=== PATIENT | male | born 1960 | race Caucasian/White ===

== ENCOUNTER 2021-06-22 10:54 | Inpatient (IN) | payer OTHER, SELFPAY ==
[2021-06-22 12:16] LABS: Absolute Lymphocytes (CBC) 1.3 K/uL (0.7-4.9); Basophils % 0.5 % (0-1.3); Hematocrit 41.3 % (39.6-49.0); Lymphocytes % 12.7 % (15.3-44.8); MPV 7.7 fL (7.6-11.3); RBC Red Blood Cell Count 4.56 M/uL (4.33-5.43)
[2021-06-22 12:17] LABS: Protime INR 1.09
[2021-06-22 12:40] LABS: ALT/SGPT 41 U/L (12-78); AST/SGOT 16 U/L (15-37); Albumin 3.8 g/dL (3.4-5.0); Alkaline Phosphatase 62 U/L (45-117); BUN Blood Urea Nitrogen 17 mg/dL (7-18); Bicarbonate 27 mmol/L (21-32); Bilirubin Direct 0.1 mg/dL (0-0.2); Bilirubin Total 0.7 mg/dL (0.2-1.0); Glucose Level 124 mg/dL (74-106); Lipase 95 U/L (73-393); NT PRO-BNP 90 pg/mL (<125); Potassium 4.1 mmol/L (3.5-5.1); Protein, Total 7.6 g/dL (6.4-8.2); Sodium Level 138 mmol/L (136-145); Troponin (Emerg Dept Use Only) < 0.02 ng/mL (0.0-0.045)
--- NOTE | 2021-06-22 12:43 | RAD REPORT ---
EXAM DESCRIPTION: RAD - Chest Single View - 06/22/2021 12:37 pm CLINICAL HISTORY: syncope COMPARISON: CHEST SINGLE VIEW dated 05/27/2014; CHEST SINGLE VIEW dated 05/23/2014; CHEST SINGLE VIEW dated 10/15/2011 FINDINGS: Lines: None. Lungs: No evidence of edema or pneumonia. Pleural: No significant pleural effusions or pneumothorax. Cardiac: The heart size is within normal limits. Bones: No acute fractures. Other: IMPRESSION: No acute cardiopulmonary disease.
--- NOTE | 2021-06-22 13:26 | RAD REPORT ---
EXAM DESCRIPTION: CTAbdomen Pelvis W Contrast - 06/22/2021 1:10 pm CLINICAL HISTORY: . ABD PAIN COMPARISON: CT ABD PELVIS W CONTRAST dated 05/25/2014 TECHNIQUE: Biphasic CT imaging of the abdomen and pelvis was performed with 100 ml non-ionic IV cont rast. All CT scans are performed using dose optimization technique as appropriate and may include automated exposure control or mA/KV adjustment according to patient size. FINDINGS: Lower chest: No acute abnormality. Liver: No acute abnormality or suspicious lesions. Biliary: No biliary ductal dilatation. Stomach: No significant focal abnormality. Duodenum: No significant focal abnormality. Pancreas: No significant abnormality. Spleen: No significant abnormality. Adrenal: No suspicious lesions. Kidney/ureter: No hydronephrosis. No renal calculi. Too small to characterize and/or benign appearing renal lesions are noted. Retroperitoneum: No retroperitoneal adenopathy. Vascular: No aneurysm. Bowel: Acute non perforated retrocecal appendicitis.. No bowel obstruction identified. No other signi ficant focal abnormality is identified. Peritoneum: No ascites or free air. Bladder: Grossly unremarkable. Reproductive: No adnexal masses. Bones: No acute fracture. Multilevel degenerative changes are present in the spine. Other: n/a IMPRESSION: Acute nonperforated appendicitis. No abscess or free air.
--- NOTE | 2021-06-22 13:41 | EDPHYS ---
Physician Documentation [facility] Name: Marvin Laureano Age: 61 yrs Sex: Male : 1960 Arrival Date: 06/22/2021 Time: 10:58 Bed 10 Private MD: ED Physician Shoaib Fuentes HPI: 06/22 11:41 This 61 yrs old Male presents to ER via Ambulatory with complaints of Low abd pm1 pain, Passed Out Prior To Arrival. 11:41 The patient presents with abdominal pain in the lower abdomen. pm1 11:41 Onset: The symptoms/episode began/occurred last night. The symptoms do not radiate. pm1 Associated signs and symptoms: Pertinent positives: Pertinent negatives: chest pain, diarrhea, dysuria, fever, nausea, shortness of breath, vomiting. The symptoms are described as achy. Modifying factors: The symptoms are alleviated by remaining still, the symptoms are aggravated by movement, walking. Severity of pain: in the emergency department the pain is unchanged is a 2 / 10 when he is not moving, but pain is moderate with movement and walking. The patient has not experienced similar symptoms in the past. The patient has not recently seen a physician, the patient's primary care provider is Dr. Nichole. 13:45 Patient last ate a small kolache and water at 1000 today. pm1 Historical: - Allergies: 11:13 No Known Allergies; jl7 - Home Meds: 11:13 None [Active]; jl7 - PMHx: 11:13 None; jl7 - PSHx: 11:13 right arm; back; jl7 - Immunization history:: Adult Immunizations not up to date. - Social history:: Smoking status: Patient denies any tobacco usage or history of. ROS: 11:41 Constitutional: Negative for fever, chills, and weight loss, Eyes: Negative for injury, pm1 pain, redness, and discharge, ENT: Negative for injury, pain, and discharge, Neck: Negative for injury, pain, and swelling, Cardiovascular: Negative for chest pain, palpitations, and edema, Respiratory: Negative for shortness of breath, cough, wheezing, and pleuritic chest pain. 11:41 Back: Negative for injury and pain, : Negative for injury, bleeding, discharge, and swelling, MS/Extremity: Negative for injury and deformity, Skin: Negative for injury, rash, and discoloration. 11:41 Abdomen/GI: Positive for abdominal pain, Negative for nausea, vomiting, and diarrhea, constipation. 11:41 Neuro: Positive for syncope, When he was sitting on the toilet this morning. 11:41 All other systems are negative. Exam: 11:41 Constitutional: This is a well developed, well nourished patient who is awake, alert, pm1 and in no acute distress. Head/Face: Normocephalic, atraumatic. 11:41 Back: No spinal tenderness. No costovertebral tenderness. Full range of motion. Skin: Warm, dry with normal turgor. Normal color with no rashes, no lesions, and no evidence of cellulitis. MS/ Extremity: Pulses equal, no cyanosis. Neurovascular intact. Full, normal range of motion. 11:41 Cardiovascular: Exam negative for acute changes, Rate: normal, Rhythm: regular, Pulses: no pulse deficits are appreciated, Heart sounds: normal, normal S1and S2, Edema: is not appreciated. 11:41 Respiratory: Exam negative for acute changes, respiratory distress, shortness of breath, Breath sounds: are clear throughout. 11:41 Abdomen/GI: Inspection: obese Palpation: soft, in all quadrants, moderate abdominal tenderness, in the right lower quadrant, rebound tenderness, is not appreciated. 11:41 Neuro: Exam negative for acute changes, Orientation: is normal, Mentation: is normal, Motor: is normal, moves all fours, Sensation: is normal, no obvious gross deficits. Vital Signs: 11:10 BP 142 / 98; Pulse 92; Resp 17; Temp 98.7; Pulse Ox 98% on R/A; Weight 145.15 kg; jl7 Height 6 ft. 2 in. (187.96 cm); Pain 6/10; 12:42 BP 125 / 73; Pulse 79; Resp 20; Pulse Ox 99% on R/A; oh 12:45 BP 137 / 81 Supine; Pulse 76; Resp 20; Pulse Ox 99% ; oh 12:50 BP 120 / 78 Sitting; Pulse 88; Resp 20; Pulse Ox 100% ; oh 12:55 BP 131 / 80 Standing; Pulse 87; Resp 20; Pulse Ox 100% ; oh 11:10 Body Mass Index 41.09 (145.15 kg, 187.96 cm) 7 MDM: 11:33 Patient medically screened. pm1 13:33 Physician consultation: Chon Nichole MD was called at 13:33, was contacted at 13:33, pm1 regarding admission, patient's condition. 13:38 Physician consultation: Pro Caruso MD was contacted at 13:38, regarding consult, pm1 patient's condition, and will see patient. 13:41 Counseling: I had a detailed discussion with the patient and/or guardian regarding: the pm1 historical points, exam findings, and any diagnostic results supporting the discharge/admit diagnosis, lab results, radiology results, the need for further work-up and treatment in the hospital. 13:41 Differential diagnosis: appendicitis, cholecystitis, non-specific abd pain, pm1 Ureterolithiasis, urinary tract infection. 13:53 Data reviewed: vital signs. Data interpreted: Pulse oximetry: on room air is 100 %. pm1 Interpretation: normal. 14:11 ED course: Patient offered pain medications on multiple occasions, but patient refused pm1 reports no pain present as long as he is laying in bed with minimal movement. 06/22 11:41 Order name: Basic Metabolic Panel pm1 06/22 11:41 Order name: CBC with Diff; Complete Time: 12:36 pm1 06/22 11:41 Order name: LFT's; Complete Time: 12:41 pm1 06/22 11:41 Order name: Magnesium; Complete Time: 12:41 pm1 06/22 11:41 Order name: NT PRO-BNP; Complete Time: 12:41 pm1 06/22 11:41 Order name: PT-INR; Complete Time: 12:36 pm1 06/22 11:41 Order name: CT Abd/Pelvis - IV Contrast Only; Complete Time: 13:30 pm1 06/22 11:41 Order name: Troponin (emerg Dept Use Only); Complete Time: 12:41 pm1 06/22 11:41 Order name: XRAY Chest (1 view); Complete Time: 12:49 pm1 06/22 11:41 Order name: Basic Metabolic Panel; Complete Time: 12:41 EDMS 06/22 11:41 Order name: Lipase; Complete Time: 12:41 pm1 06/22 15:21 Order name: SARS-COV-2 RT PCR; Complete Time: 15:26 EDMS 06/22 11:41 Order name: EKG; Complete Time: 11:41 pm1 06/22 11:41 Order name: Cardiac monitoring; Complete Time: 12:56 pm1 06/22 11:41 Order name: EKG - Nurse/Tech; Complete Time: 12:56 pm1 06/22 11:41 Order name: IV Saline Lock; Complete Time: 12:56 pm1 06/22 11:41 Order name: Labs collected and sent; Complete Time: 12:56 pm1 06/22 11:41 Order name: O2 Per Protocol; Complete Time: 12:56 pm1 06/22 11:41 Order name: O2 Sat Monitoring; Complete Time: 12:56 pm1 06/22 11:41 Order name: Orthostatics; Complete Time: 12:56 pm1 06/22 13:41 Order name: NPO; Complete Time: 13:57 pm1 06/22 14:03 Order name: CONS Physician Consult EDMS Administered Medications: 13:56 Drug: NS 0.9% 1000 ml Route: IV; Rate: 125 ml/hr; Site: right antecubital; ld1 13:57 Drug: Zosyn (piperacillin-tazobactam) 3.375 grams Route: IVPB; Infused Over: 60 mins; ld1 Site: right antecubital; Disposition: 16:55 Co-signature as Attending Physician, Shoaib Fuentes MD I agree with the assessment and rn plan of care. Attestation: The patient's history, exam findings, diagnostics, and a summary of any interventions or procedures was reviewed in detail with Romulo Hurst BUSINESS INTELLIGENCE CONSULTANT. Disposition Summary: 06/22/21 13:41 Hospitalization Ordered Hospitalization Status: Inpatient Admission pm1 Provider: Chon Nichole pm1 Condition: Stable pm1 Problem: new pm1 Symptoms: have improved pm1 Bed/Room Type: Standard pm1 Location: Telemetry/MedSurg (Inpatient)(06/22/21 16:28) bd Room Assignment: 229(06/22/21 16:28) bd Diagnosis - Unspecified acute appendicitis pm1 Forms: - Medication Reconciliation Form pm1 - SBAR form pm1 Signatures: Dispatcher [employer] EDMS Ariana Bentley Roman, MD MD rn Marinas, Patrick, NP BUSINESS INTELLIGENCE CONSULTANT pm1 Casey Andujar RN RN jl7 Shaylee Olsen RN RN ld1 Attema, Gustavo la3 Corrections: (The following items were deleted from the chart) 11:14 11:13 PSHx: None; jl7 jl7 14:18 13:16 CORONAVIRUS+MR.LAB.BRZ ordered. EDMS EDMS 15:54 13:41 Telemetry/MedSurg (Inpatient) pm1 bd 15:54 13:41 pm1 bd 16:28 15:54 [facility] ER HOLD bd bd 16:28 15:54 ERHOLD- bd bd
--- NOTE | 2021-06-22 13:41 | ER ---
Nurse's Notes [facility] Name: Marvin Laureano Age: 61 yrs Sex: Male : 1960 Arrival Date: 06/22/2021 Time: 10:58 Bed 10 Private MD: Diagnosis: Unspecified acute appendicitis Presentation: 06/22 11:10 Chief complaint: Patient states: Right lower quadrant pain X3 days; passed out this jl7 morning about 0500, reports fever all night. Coronavirus screen: Vaccine status: Patient reports being unvaccinated. Patient reports having had a previously documented Covid positive illness. May 20, 2021. Ebola Screen: No symptoms or risks identified at this time. Initial Sepsis Screen: Does the patient meet any 2 criteria? No. Patient's initial sepsis screen is negative. Does the patient have a suspected source of infection? No. Patient's initial sepsis screen is negative. Risk Assessment: Do you want to hurt yourself or someone else? Patient reports no desire to harm self or others. Onset of symptoms was June 20, 2021. 11:10 Method Of Arrival: Ambulatory [facility] 11:10 Acuity: ARIAN 3 jl7 Triage Assessment: 11:13 General: Appears in no apparent distress. uncomfortable, Behavior is calm, cooperative, jl7 appropriate for age. Pain: Complains of pain in right lower quadrant Pain currently is 6 out of 10 on a pain scale. Historical: - Allergies: 11:13 No Known Allergies; jl7 - Home Meds: 11:13 None [Active]; jl7 - PMHx: 11:13 None; jl7 - PSHx: 11:13 right arm; back; jl7 - Immunization history:: Adult Immunizations not up to date. - Social history:: Smoking status: Patient denies any tobacco usage or history of. Screenin:42 Abuse screen: Denies threats or abuse. Nutritional screening: No deficits noted. oh Tuberculosis screening: No symptoms or risk factors identified. Fall Risk Fall in past 12 months (25 points). Assessment: 12:43 General: Appears in no apparent distress. Behavior is calm, cooperative, appropriate oh for age. Pain: Complains of pain in abdomen and right lower quadrant. Neuro: No deficits noted. Cardiovascular: Reports syncope, since yesterday. Respiratory: No deficits noted. GI: Reports lower abdominal pain, cramping. : No deficits noted. EENT: No deficits noted. Derm: No deficits noted. Musculoskeletal: No deficits noted. 14:22 Reassessment: OR team at bedside to take patient. ld1 Vital Signs: 11:10 BP 142 / 98; Pulse 92; Resp 17; Temp 98.7; Pulse Ox 98% on R/A; Weight 145.15 kg; jl7 Height 6 ft. 2 in. (187.96 cm); Pain 6/10; 12:42 BP 125 / 73; Pulse 79; Resp 20; Pulse Ox 99% on R/A; oh 12:45 BP 137 / 81 Supine; Pulse 76; Resp 20; Pulse Ox 99% ; oh 12:50 BP 120 / 78 Sitting; Pulse 88; Resp 20; Pulse Ox 100% ; oh 12:55 BP 131 / 80 Standing; Pulse 87; Resp 20; Pulse Ox 100% ; oh 11:10 Body Mass Index 41.09 (145.15 kg, 187.96 cm) jl7 ED Course: 10:58 Patient arrived in ED. rg4 11:13 Triage completed. jl7 11:13 Arm band placed on right wrist. jl7 11:18 Romulo Hurst NP is PHCP. pm1 11:19 Shoaib Fuentes MD is Attending Physician. pm1 12:37 XRAY Chest (1 view) In Process Unspecified. EDMS 12:43 Bed in low position. Call light in reach. Side rails up X 1. oh 12:56 Basic Metabolic Panel Sent. oh 12:56 Inserted saline lock: 18 gauge in right antecubital area, using aseptic technique. oh Blood collected. 13:09 CT Abd/Pelvis - IV Contrast Only In Process Unspecified. EDMS 13:40 Chon Nichole MD is Hospitalizing Provider. pm1 Administered Medications: 13:56 Drug: NS 0.9% 1000 ml Route: IV; Rate: 125 ml/hr; Site: right antecubital; ld1 13:57 Drug: Zosyn (piperacillin-tazobactam) 3.375 grams Route: IVPB; Infused Over: 60 mins; ld1 Site: right antecubital; Outcome: 13:41 Decision to Hospitalize by Provider. pm1 16:33 Patient left the ED. hb Signatures: Dispatcher [employer] EDMS Romulo Hurst NP HIGH SCHOOL TUTOR pm1 Jeanne Lemos, RN RN Emily De La Cruz rg4 Casey Andujar RN RN jl7 Shaylee Olsen RN RN ld1 Ochoa Leal RN RN oh Corrections: (The following items were deleted from the chart) 11:14 11:13 PSHx: None; jl7 jl7 14:18 14:07 CORONAVIRUS+MR.LAB.BRZ drawn and sent. ld1 BARTOLO
[2021-06-22] MEDS ORDERED: PIPER/TAZO/NS 3.375gm 3.375 GM/100 ML BAG ONE (14:09)
[2021-06-22] MEDS ORDERED: NA CHLORIDE 0.9% 1,000 ML ONE (14:09)
[2021-06-22] MEDS ORDERED: MIDAZOLAM HCL 2 MG/2 ML INJ ONE (14:24)
[2021-06-22] MEDS ORDERED: propofoL 200 MG/20 ML VIAL IV ONE (14:24)
[2021-06-22] MEDS ORDERED: FENTANYL CITR 100 MCG/2 ML ONE (14:24)
[2021-06-22] MEDS ORDERED: LIDOCAINE 1% MPF 5 ML VIAL ONE (14:25)
[2021-06-22] MEDS ORDERED: ROCURONIUM 50 MG/5 ML VIAL IV ONE (14:25)
--- NOTE | 2021-06-22 15:00 | P.HP ---
Date of Service: 06/22/21 PC: This 61-year-old male presented to the emergency room with severe right lower quadrant abdominal pain for diagnosis and treatment. HPC: Patient apparently had sudden onset of abdominal pain yesterday afternoon. Pain was vague in presentation initially. Over the course of the night time, has migrated down to the right lower quadrant. Now has exquisite tenderness in that area. PSHx: Negative PMHx: Negative Social Hx: No known allergies Sys R: No cough, wheeze, shortness of breath. No chest pain or palpitations. No urinary complaints O/E: Awake alert vital signs are stable HEENT: Within normal limits Chest: Chest movement equal bilaterally Abd: Pain with tenderness and guarding in the right lower quadrant Childs: Intact Data: Mildly elevated white count, CT scan correlates with clinical exam of acute abdomen Impression: Acute abdomen with appendicitis Plan: I will taken to the operating room for laparoscopic possible open appendectomy. The risks of this procedure have been discussed. The possibility of bleeding, infection, injury to bowel blood vessels and surrounding structures has been outlined. The possible need for open and/or further surgeries and procedures was described. Abscess formation and other unseen complications were discussed. He understands and wants us to proceed.
[2021-06-22] MEDS ORDERED: SUCCINYLCHOLINE 20 MG/ML (10 ML) IV ONE (15:07)
[2021-06-22] MEDS ORDERED: GLYCOPYRROLATE 0.2 MG/ML SYR ONE (15:36)
[2021-06-22] MEDS ORDERED: ONDANSETRON 4 MG/2 ML VIAL ONE (15:36)
[2021-06-22] MEDS ORDERED: NEOSTIGMINE 1 MG/ML -5 ML ONE (15:36)
[2021-06-22] MEDS ORDERED: KETOROLAC 30 MG/ML INJ ONE (15:36)
[2021-06-22] MEDS: HYDROMORPHONE HCL 1 MG/ML INJ ONE ×2 (16:12→16:17)
[2021-06-22] MEDS ORDERED: ONDANSETRON 4 MG/2 ML VIAL IV PRN ×2 (16:14→16:59)
[2021-06-22] MEDS: NA CHLORIDE 0.9% 1,000 ML IV SCH ×2 (16:14→17:49)
[2021-06-22] MEDS ORDERED: MORPHINE 4 MG/ML SYR IV PRN (16:14)
[2021-06-22] MEDS ORDERED: HYDROMORPHONE HCL 1 MG/ML INJ ONE (17:32)
[2021-06-22 18:03] VITALS: BMI 41.1
[2021-06-22] MEDS: PIPER/TAZO/NS 3.375gm 3.375 GM/100 ML BAG IVPB SCH (20:00)
[2021-06-22] MEDS: HYDROCODONE/APAP 7.5/325 MG TAB PO PRN (20:32)
[2021-06-22] MEDS ORDERED: PIPERACIL/TAZO 3.375 GM VIAL IV ONE (20:40)
[2021-06-22] MEDS ORDERED: NA CHLORIDE 0.9% 100 ML ONE (20:41)
[2021-06-22] MEDS: MORPHINE 4 MG/ML SYR IV PRN (22:50)
[2021-06-23] MEDS ORDERED: PIPERACIL/TAZO 3.375 GM VIAL IV ONE (00:03)
[2021-06-23] MEDS ORDERED: NA CHLORIDE 0.9% 100 ML ONE ×2 (00:25)
[2021-06-23] MEDS: PIPER/TAZO/NS 3.375gm 3.375 GM/100 ML BAG IVPB SCH ×2 (01:00→06:17)
[2021-06-23] MEDS: MORPHINE 4 MG/ML SYR IV PRN ×3 (01:08→06:17)
[2021-06-23] MEDS: HYDROCODONE/APAP 7.5/325 MG TAB PO PRN ×3 (03:05→15:42)
[2021-06-23] MEDS: NA CHLORIDE 0.9% 1,000 ML IV SCH ×2 (04:20→08:14)
[2021-06-23 05:39] VITALS: TEMP 97.8
[2021-06-23 06:05] LABS: Absolute Lymphocytes (CBC) 1.8 K/uL (0.7-4.9); Basophils % 0.3 % (0-1.3); Hematocrit 36.7 % (39.6-49.0); Lymphocytes % 22.5 % (15.3-44.8); MPV 7.8 fL (7.6-11.3); RBC Red Blood Cell Count 4.03 M/uL (4.33-5.43)
[2021-06-23 06:28] LABS: Albumin 3.3 g/dL (3.4-5.0); Bilirubin Direct 0.2 mg/dL (0-0.2); Bilirubin Total 0.6 mg/dL (0.2-1.0); Potassium 4.5 mmol/L (3.5-5.1); Protein, Total 6.9 g/dL (6.4-8.2)
[2021-06-23 09:16] VITALS: BP 121/73
--- NOTE | 2021-06-23 10:26 | EKG ---
Test Date: 2021-06-22 Test Time: 12:10:30 Mycology Teacher: CHRISTINA MEASUREMENT RESULTS: Intervals: Rate: 81 UT: 156 QRSD: 96 QT: 368 QTc: 427 [place]: P: 49 UT: 156 QRS: -32 T: 54 INTERPRETIVE STATEMENTS: Normal sinus rhythm Left axis deviation Abnormal ECG Compared to ECG 05/23/2014 14:47:53 Left-axis deviation now present Sinus bradycardia no longer present Electronically Signed On 06-23-21 10:22:13 CDT by Miguel Ángel Carreon
[2021-06-23] MEDS ORDERED: PIPER/TAZO/NS 3.375gm 3.375 GM/100 ML BAG IVPB SCH (11:30)
[2021-06-23 12:28] VITALS: O2SAT 94
--- NOTE | 2021-06-23 12:35 | P.SSS ---
Patient History Date of Service: 06/23/21 Reason for admission: ABDOMEN PAIN. 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 DR. YOST DID URGENT SURGERY LAST NIGHT AND HE IS STABLE TODAY. Allergies No Known Allergies Allergy (Verified 05/28/14 03:22) Home Medications: NK [No Home Meds] 06/23/21 - Past Medical/Surgical History Has patient received pneumonia vaccine in the past: No -: back sx -: knee sx -: arm sx - Social History Smoking Status: Never smoker Alcohol use: Yes CD- Drugs: No Caffeine use: Yes Review of Systems 10-point ROS is otherwise unremarkable Physical Examination - Vital Signs Temperature: 97.8 F Blood Pressure: 121/73 Pulse: 73 Respirations: 22 Pulse Ox (%): 94 - Physical Exam General: Alert, In no apparent distress, Obese HEENT: Atraumatic, PERRLA, Mucous membr. moist/pink, EOMI, Sclerae nonicteric Neck: Supple, 2+ carotid pulse no bruit, No LAD, Without JVD or thyroid abnormality Respiratory: Clear to auscultation bilaterally, Normal air movement Cardiovascular: Regular rate/rhythm, Normal S1 S2 Gastrointestinal: Normal bowel sounds, No tenderness, Other (POST SURGICAL DAY ONE.) Musculoskeletal: No tenderness Integumentary: No rashes Neurological: Normal gait, Normal speech, Normal strength at 5/5 x4 extr, Normal tone, Normal affect Lymphatics: No axilla or inguinal lymphadenopathy - Studies Laboratory Data (last 24 hrs) 06/22/21 11:59: Sodium 138, Potassium 4.1, BUN 17, Creatinine 1.11, Glucose 124 H, Magnesium 2.0, Total Bilirubin 0.7, AST 16, ALT 41, Alkaline Phosphatase 62, Lipase 95 - Diagnosis (Problem(s)) (1) Appendicitis Current Visit: Yes Status: Acute Plan: SURGERY WENT WELL. HE IS STABLE. ON CLEAR LIQUIDS TODAY. DR. PHILIPPE WILL DC HIM TODAY. - Disposition Disposition: ROUTINE DISCHARGE
--- NOTE | 2021-07-22 13:32 | P.OP ---
Preoperative diagnosis: Acute appendicitis Postoperative diagnosis: The same Primary procedure: Laparoscopic appendectomy Anesthesia: General Estimated blood loss: Less than 10 cc Specimen: 1 appendix Findings: Acute appendicitis Operative Technique: The patient brought the operating room placed supine on the table. After the induction of adequate general endotracheal anesthesia, the area of the abdomen was prepped with a DuraPrep solution, and draped in usual aseptic manner. A subumbilical incision was made. This was brought down through the skin and subcutaneous tissue. The Visiport was then used to enter the peritoneal cavity and created pneumoperitoneum to approximately 12 mmHg. Under direct vision a 5 mm trocar was placed in the right upper quadrant, and another in the lower midline. With the patient placed in marked Trendelenburg and rolled to the left we were able to see the right lower quadrant. The cecum was identified. We could see an inflamed appendix with some fibrinous exudate around it. A grasper was placed at the base of the appendix. An opening was made after mobilizing the cecum and appendix, and the base of the mesentery. This was just at the junction of the appendix with the cecum. A 12 mm trocar was now substituted and at the umbilical trocar site. Through this we were able to pass down our linear stapler. This was placed across the base of the appendix and fired. The appendix was now dissected in a retrograde manner and we were able to find the tip and bring it up. There was a considerable amount of exudate in this area. The mesentery was now isolated. We gently grasped with a grasper and compressed it to get some of the edema out of the area. The linear stapler was now placed across the base of the mesentery of the appendix and fired. This essentially disconnected the appendix from the mesentery. The specimen was then placed into an Endo Catch, and brought out through the umbilical trocar site. Attention was turned back towards the right lower quadrant. Using minimal irrigation the area was cleaned to ensure adequate hemostasis. The patient was then placed in the neutral position on the OR table. The umbilical trocar site was approximated with 2 sutures of absorbable material using the Endo Close. At this point the pneumoperitoneum was collapsed, the sutures tied, and the trochars removed. At the end of the procedure he was stable and sent to the recovery room. Needle sponge instrument count were correct. No drains were placed. Complications: None Transferred to: Recovery Room Condition: Good
== END 2021-06-23 16:00 | disposition home or self-care (01) | DRG 342 ==
LOC: ER 10:54 → ERHOLD 14:01 → 2ND 17:15
PROVIDERS: ADMIT Internal Medicine; ATTEND Internal Medicine
PROC: 0DTJ4ZZ Resection of Appendix, Percutaneous Endoscopic Approach (ICD-10-PCS; principal; 2021-06-22 14:00)
DX: K35.80 Unspecified acute appendicitis (principal); Z68.41 Body mass index [BMI] 40.0-44.9, adult; E66.9 Obesity, unspecified; Z20.822 Contact with and (suspected) exposure to COVID-19
CPT/HCPCS: 36415; 71045; 74177; 80048; 80076; 83690; 83735; 83880; 84484; 85025; 85610; 88304; 93005; 94010; 96374; 99284; J0330; J1170; J2250; J2405; J2543; J2704; J2710; J3010; J7030; Q9967; U0003